=== PATIENT | male | born 1980 | race Two or more races ===

== ENCOUNTER 2025-03-05 09:12 | Emergency (ER) | payer OTHER ==
[~2025-03-05] VITALS: Ht 182.9 cm; Wt 88.5 kg
[2025-03-05 09:31] VITALS: BP 147/84; O2SAT 98
[2025-03-05] MEDS ORDERED: KETOROLAC TROMETHAMINE 60 MG VIAL IM ONE ×2 (09:43→09:45)
[2025-03-05] MEDS ORDERED: CEFTRIAXONE SODIUM 1,000 MG VIAL ONE (09:43)
[2025-03-05] MEDS ORDERED: ACETAMINOPHEN 500 MG GEL..CAP PO ONE ×2 (09:43→09:45)
[2025-03-05] MEDS ORDERED: DEXAMETHASONE SODIUM PHOSPHATE 4 MG/ML VIAL ONE (09:43)
[2025-03-05] MEDS ORDERED: LIDOCAINE HCL 1% 10ML VIAL ONE (09:44)
[2025-03-05] MEDS ORDERED: CEFTRIAXONE SODIUM 1,000 MG VIAL IM ONE (09:45)
[2025-03-05] MEDS ORDERED: DEXAMETHASONE 4 MG TABLET PO ONE (09:45)
[2025-03-05] MEDS ORDERED: DEXAMETHASONE SODIUM PHOSPHATE 4 MG/ML VIAL IM ONE (10:00)
== END 2025-03-05 09:58 | disposition home or self-care (01) ==
LOC: ER 09:12
DX: K08.89 Other specified disorders of teeth and supporting structures (principal); K02.9 Dental caries, unspecified